=== PATIENT | female | born 1950 | race Caucasian/White ===

== ENCOUNTER → 2017-04-27 | Outpatient (CLI) | payer OTHER ==
[~2017-04-27] MED LIST: CALC500T42 PO; CYC10 PO; GLUC-198 PO; NAB500 PO; OMEG500C5 PO; VITA1CAP46 PO; [UNRECOGNIZED DRUG - CODE] PO
--- NOTE | 2017-04-29 11:40 | RADIOLOGY IMAGING REPORT ---
FACILITY: [facility] PATIENT NAME: CHARAN PARRISH : [id number] MR: [id number] V: [id number] EXAM DATE: [id number] ORDERING PHYSICIAN: WALLACE PAGAN TECHNOLOGIST: Joy Blancas PROCEDURE:BILATERAL DIGITAL SCREENING MAMMOGRAM WITH CAD ASSISTED INTERPRETATION & 3D BREAST TOMOSYNTHYSIS COMPARISON:Prior mammograms 02/14/15. INDICATIONS:SCREENING FINDINGS: Moderately heterogeneous fibroglandular tissue is seen throughout the breasts. The parenchymal pattern has remained stable when allowing for difference in mammographic technique & patient positioning. There is no evidence of malignant appearing mass, malignant appearing calcification or secondary sign of malignancy in either breast. DIAGNOSTIC CATEGORY 2--BENIGN FINDING. RECOMMENDATIONS: ROUTINE MAMMOGRAM AND CLINICAL EVALUATION. IMPRESSION: BIRADS 2: Benign finding 1. No significant abnormality is seen Dictated by: Serena Weber M.D. on 04/27/2017 at 16:06 Transcribed by: RACHELLE on 04/28/2017 at 11:06 Approved by: Serena Weber M.D. on 04/29/2017 at 11:39 [facility]
== END ==
LOC: MAMO 00:51
PROVIDERS: ATTEND Nurse Practitioner Family
DX: Z12.31 Encounter for screening mammogram for malignant neoplasm of breast (principal)
CPT/HCPCS: 77063; 77067

== ENCOUNTER → 2018-05-15 | Outpatient (CLI) | payer OTHER ==
--- NOTE | 2018-05-15 16:10 | RADIOLOGY IMAGING REPORT ---
[place] [facility] [place] NAME: CHARAN PARRISH : [id number] MR: [id number] V: [id number] EXAM DATE: ORDERING PHYSICIAN: WALLACE PAGAN TECHNOLOGIST: Vashti Alfaro PROCEDURE:BILATERAL DIGITAL SCREENING MAMMOGRAM WITH CAD ASSISTED INTERPRETATION & 3D TOMOSYNTHESIS COMPARISON:Prior mammograms 04/27/17, 02/14/2015 INDICATIONS:SCREENING FINDINGS: The breasts are heterogeneously dense. A few scattered benign bilateral round microcalcifications. Within the posterior Left breast at the nipple line on the MLO view there is a new asymmetry measuring 1.6cm. This may alternatively represent normal fibroglandular tissue which exhibits different appearance secondary to positional differences. No definitive correlate of this finding on the CC view. There is benign stable fibroglandular asymmetry in the medial posterior Left breast seen on CC view. Otherwise normal breasts without additional interval change. DIAGNOSTIC CATEGORY 0--INCOMPLETE: NEED ADDITIONAL IMAGING EVALUATION. RECOMMENDATIONS: ADDITIONAL MAMMOGRAPHIC VIEWS REQUIRED: LEFT BREAST. ULTRASOUND: LEFT BREAST. IMPRESSION: BIRADS 0: Incomplete Needs additional imaging. Spot compression MLO view and straight lateral Left breast views recommended for further evaluation of the asymmetry of interest. Left breast Ultrasound also recommended (if needed) following the mammogram views. Dictated by: King Sheldon on 05/15/2018 at 13:21 Transcribed by: RACHELLE on 05/15/2018 at 13:51 Approved by: King Sheldon on 05/15/2018 at 16:09 [facility]
== END ==
LOC: MAMO 02:43
PROVIDERS: ATTEND Nurse Practitioner Family
DX: Z12.31 Encounter for screening mammogram for malignant neoplasm of breast (principal); R92.8 Other abnormal and inconclusive findings on diagnostic imaging of breast
CPT/HCPCS: 77063; 77067

== ENCOUNTER → 2018-06-01 | Outpatient (CLI) | payer OTHER ==
--- NOTE | 2018-06-01 15:18 | RADIOLOGY IMAGING REPORT ---
FACILITY: [facility] - [place], [place] PATIENT NAME: Sherine Wolff : 1950 MR: [id number] V: [id number] EXAM DATE: ORDERING PHYSICIAN: WALALCE PAGAN TECHNOLOGIST: Location: [facility] Patient: Sherine Wolff : 1950 Visit/Account:[id number] Date of Sevice: 06/01/2018 DEXA Scan Clinical history: Menopause. Comparison: DEXA scan from 03/22/2008. LUMBAR SPINE: The bone mineral density (BMD) measured from L1-L4 correlates with a Z-score of 1.8 and a T-score of 0.5 which is Normal as defined by the World Health Organization. The corresponding risk of fracture in the lumbar spine is Not increased compared with a young adult reference population. This value walters s increased by 16.8 % since the prior study. More than 5% change is considered significant. HIP: Bone mineral density (BMD) measured in the LEFT total hip region correlates with a Z-score 0.1 and a T-score of -1 which is normal as defined by the World Health Organization. The corresponding risk of fracture in the hip is 2 jeffrey es increased compared to a young adult reference population. This value has increased by 2.5 % since the prior study. More than 5% change is considered significant. T score left femoral neck -0.5 Bone mineral density (BMD) measured in the Femoral Neck region measures 0.974 g/cm?. IMPRESSION: 1. Lumbar spine: Normal. There has been 16.8% increase in the bone mineral density since the previo us exam. 2. Left Total Hip: Normal. There has been 2.5% increase in the bone mineral density since the previ ous exam. 3. Femoral Neck: Bone Mineral Density is 0.974 g/cm? The next DEXA scan of this patient should include the following sites: L1-L4 and the left hip. FRAX? WHO Fracture Risk Assessment Tool link: <http://www.shef.ac.uk/FRAX/tool.jsp?locationValue=9> PLEASE NOTE: 1) The World Health Organization defines low BMD as follows: T-score Normal > -1 Osteopenia < -1 and > -2.5 Osteoporosis < -2.5 without fractures Established osteoporosis < -2.5 with fractures 2) In general, you may wish to consider: Diagnosis Treatment Follow-up DEXA Normal BMD Prevention 2-3 years Osteopenia Prevention/therapy 1-2 years Osteoporosis Therapy Yearly 3) Fracture risk estimated from the T-score is more accurate for vertebral fractures (often spontane ous) than for hip fractures. Report Dictated By: Serena Weber MD at 06/01/2018 3:13 PM Report E-Signed By: Serena Weber MD at 06/01/2018 3:15 PM WSN:[email or web address]
--- NOTE | 2018-06-02 09:12 | RADIOLOGY IMAGING REPORT ---
[place] [facility] [place] NAME: CHARAN PARRISH : [id number] MR: [id number] V: [id number] EXAM DATE: [id number] ORDERING PHYSICIAN: WALLACE PAGAN TECHNOLOGIST: Joy Blancas PROCEDURE:LEFT DIGITAL DIAGNOSTIC MAMMOGRAM WITH CAD ASSISTED INTERPRETATION & 3D TOMOSYNTHESIS COMPARISON:Prior mammograms 05/15/18, 04/27/17, 02/14/15. INDICATIONS:FUTHER EVAL FINDINGS: The patient returns for mediolateral view of the Left breast and a Spot compression view in the Left MLO projection. The focal asymmetry just above mid nipple line posterior 1/3 of the Left breast on the recent Left MLO view appeared compressible and apparently represented a summation shadow. There was no demonstration of malignant appearing mass or calcification in the Left breast. DIAGNOSTIC CATEGORY 2--BENIGN FINDING. RECOMMENDATIONS: ROUTINE MAMMOGRAM AND CLINICAL EVALUATION. IMPRESSION: BIRADS 2: Benign finding. No significant abnormality of the Left breast is seen. Dictated by: Serena Weber M.D. on 06/01/2018 at 11:03 Transcribed by: RACHELLE on 06/01/2018 at 11:23 Approved by: Serena Weber M.D. on 06/02/2018 at 9:11 [facility]
== END ==
LOC: MAMO 00:56
PROVIDERS: ATTEND Nurse Practitioner Family
DX: Z78.0 Asymptomatic menopausal state (principal)
CPT/HCPCS: 77061; 77065; 77080